=== PATIENT | female | born 1960 | race Caucasian/White ===

== ENCOUNTER → 2016-10-21 | Outpatient (CLI) | payer BC | END | disposition home or self-care (01) | LOC: CFH 07:15 | PROVIDERS: ATTEND Family Medicine | DX: M48.02 Spinal stenosis, cervical region (principal); M25.78 Osteophyte, vertebrae; M46.82 Other specified inflammatory spondylopathies, cervical region | CPT/HCPCS: 72141 ==

== ENCOUNTER 2016-12-31 22:20 | Emergency (ER) | payer BC ==
[~2016-12-31] VITALS: Ht 160 cm; Wt 50.0 kg
[2016-12-31 22:30] VITALS: BP 112/68
[2016-12-31] MEDS ORDERED: HYDR-3240 PO (22:38)
[2016-12-31] MEDS ORDERED: IBUP-1222 PO (22:38)
[2016-12-31] MEDS ORDERED: METHOCARBAMOL 750 MG TABLET ONE (22:56)
[2016-12-31] MEDS ORDERED: HYDROmorphone 1 MG/ML, 1ML ONE (22:56)
[2016-12-31] MEDS ORDERED: METHOCARBAMOL 750 MG TABLET PO ONE (23:00)
[2016-12-31] MEDS ORDERED: HYDROmorphone 1 MG/ML, 1ML IM ONE (23:00)
== END 2016-12-31 23:54 | disposition home or self-care (01) ==
LOC: ED 23:48
DX: M54.81 Occipital neuralgia (principal); M54.2 Cervicalgia
CPT/HCPCS: 96372; 99283; J1170